=== PATIENT | male | born 1960 | race Hispanic/Latino ===

== ENCOUNTER 2017-12-13 18:45 | Emergency (ER) | payer OTHER ==
--- NOTE | 2017-12-13 19:27 | C.PDOC ---
History Of Present Illness 57-year-old male presents to the ED for evaluation of left posterior upper thigh abscess which has been present for two days. Patient denies any fevers at home as well as any other complaints at this time. Time Seen by Provider: 12/13/17 19:04 Chief Complaint (Nursing): Abnormal Skin Integrity History Per: Patient History/Exam Limitations: no limitations Onset/Duration Of Symptoms: Days (2) Current Symptoms Are (Timing): Still Present Location Of Injury: Left: Thigh (posterior, upper ) Additional History Per: Patient Past Medical History Reviewed: Historical Data, Nursing Documentation, Vital Signs Vital Signs: Last Vital Signs Temp 99 F 12/13/17 20:29 Pulse 100 H 12/13/17 20:29 Resp 20 12/13/17 20:29 BP 130/80 12/13/17 20:29 Pulse Ox 97 12/14/17 00:36 - Medical History PMH: No Chronic Diseases Surgical History: No Surg Hx Family History: States: Unknown Family Hx - Social History Hx Alcohol Use: Yes Hx Substance Use: No - Immunization History Hx Tetanus Toxoid Vaccination: No Hx Influenza Vaccination: No Hx Pneumococcal Vaccination: No Review Of Systems Constitutional: Negative for: Fever, Chills Skin: Positive for: Other (abscess to left posterior upper thigh ) Physical Exam - Physical Exam Appears: Non-toxic, No Acute Distress Skin: Other (3-4cm area of erythema, induration, and fluctuation to left posterior upper thigh ) Head: Atraumatic, Normacephalic Eye(s): bilateral: Normal Inspection Oral Mucosa: Moist Neck: Supple Chest: Symmetrical, No Deformity Cardiovascular: Rhythm Regular, No Murmur Respiratory: Normal Breath Sounds, No Rales, No Rhonchi, No Wheezing Extremity: Normal ROM, Capillary Refill (less than 2 seconds ) Neurological/Psych: Normal Speech, Normal Cognition ED Course And Treatment O2 Sat by Pulse Oximetry: 97 (on RA) Pulse Ox Interpretation: Normal Medical Decision Making Medical Decision Making: abscess i and d pending. Progress: Tylenol PO given. drained bedside by surgical assistant pt feels much better s/p drainage. advise 2 day return for wound check. Disposition - Disposition Referrals: [facility] [Outside] [facility] [Outside] Elena Magaña MD [Staff Provider] - Disposition: HOME/ ROUTINE Disposition Time: 08:00 Condition: STABLE Additional Instructions: return in 2 days for woundcheck. return immediately with any worsening symptoms or concerns. Prescriptions: Sulfamethoxazole/Trimethoprim [Bactrim DS 800 mg-160 mg] 1 tab PO BID #20 tab Instructions: Skin Abscess, Cellulitis (Skin Infection), Adult (DC) Forms: [employer] (Kittitian) - Clinical Impression Clinical Impression: Abscess - Scribe Statement The provider has reviewed the documentation as recorded by the Scribe (Cynthia Magaña) Provider Attestation: All medical record entries made by the Nessaibe were at my direction and personally dictated by me. I have reviewed the chart and agree that the record accurately reflects my personal performance of the history, physical exam, medical decision making, and the department course for this patient. I have also personally directed, reviewed, and agree with the discharge instructions and disposition.
[2017-12-13] MEDS ORDERED: Lidocaine 1% Inj (20ml) INFIL ONE (19:28)
[2017-12-13] MEDS ORDERED: HYDROmorphone 1 mg/ml ISec IVP STA (19:28)
[2017-12-13] MEDS ORDERED: Morphine 4 MG/ML VIAL ONE (19:44)
[2017-12-13] MEDS ORDERED: Lidocaine Hydrochloride 10 ML INJ ONE (19:50)
[2017-12-13] MEDS ORDERED: Tmp-Smz 800 mg-160 mg DS Tab PO STA (20:14)
[2017-12-13] MEDS ORDERED: Tmp-Smz 800 mg-160 mg DS Tab ONE (20:21)
[2017-12-13 20:30] VITALS: BP 130/80; PULSE 100; RESP 20; TEMP 99
[2017-12-14 00:36] VITALS: O2SAT 97
--- NOTE | 2017-12-20 18:33 | PCM.PROC ---
- Incision & Drainage Of Abscess Anesthesia: Lidocaine 1% Used During Procedure: Continuous Pulse Oximetry, Auto Polisher, Oxygen Prep Used: Sterile Water, Betadine Procedure: Incised W/Scalpel Blade#: (11), Drained Pus, Irrigated Cavity W/Saline (Buttocks), Probed To Break Up Loculations, Packed W/Gauze
== END 2017-12-13 20:29 | disposition home or self-care (01) ==
LOC: C.ER 18:45
DX: L02.416 Cutaneous abscess of left lower limb (principal)
CPT/HCPCS: 10060; 96372; 99283; J2270

== ENCOUNTER 2018-03-13 06:35 | Emergency (ER) | payer OTHER ==
[2018-03-13 06:44] VITALS: RESP 18
[2018-03-13] MEDS ORDERED: Naproxen 550 mg Tab PO STA (07:24)
--- NOTE | 2018-03-13 07:31 | C.PDOC ---
History Of Present Illness 57 y/o male presents to the ED complaining of left upper leg pain, originating in the left buttock and radiating down into the thigh for 1 week. Denies any fall or injury. Pain was initially localized to the lower thigh and has migrated upward. Today pain worsened, prompting him to come to the ED. Pain worsens with movement. Otherwise patient denies any numbness, tingling, fever, rash, abdominal pain, leg swelling, chest pain, or SOB. Time Seen by Provider: 03/13/18 07:14 Chief Complaint (Nursing): Lower Extremity Problem/Injury History Per: Patient History/Exam Limitations: no limitations Onset/Duration Of Symptoms: Days (x7) Current Symptoms Are (Timing): Still Present Past Medical History Reviewed: Historical Data, Nursing Documentation, Vital Signs Vital Signs: Last Vital Signs Temp 98.3 F 03/13/18 06:39 Pulse 68 03/13/18 06:39 Resp 18 03/13/18 06:39 BP 156/100 H 03/13/18 06:39 Pulse Ox 95 03/13/18 06:39 Family History: States: Unknown Family Hx - Social History Hx Tobacco Use: No Hx Alcohol Use: Yes Hx Substance Use: No - Immunization History Hx Tetanus Toxoid Vaccination: No Hx Influenza Vaccination: No Hx Pneumococcal Vaccination: No Review Of Systems Constitutional: Negative for: Fever Cardiovascular: Negative for: Chest Pain Respiratory: Negative for: Shortness of Breath Gastrointestinal: Negative for: Abdominal Pain Musculoskeletal: Positive for: Leg Pain (left buttock through left thigh). Negative for: Back Pain Skin: Negative for: Rash, Lesions Neurological: Negative for: Weakness, Numbness Physical Exam - Physical Exam Appears: Non-toxic, In Acute Distress (in mild painful distress) Skin: Normal Color, Warm, Dry Head: Atraumatic, Normacephalic Eye(s): bilateral: Normal Inspection, PERRL, EOMI Oral Mucosa: Moist Neck: Normal ROM Chest: Symmetrical Cardiovascular: Rhythm Regular, No Murmur Respiratory: Normal Breath Sounds, No Rales, No Rhonchi, No Wheezing Gastrointestinal/Abdominal: Soft, No Tenderness, No Distention, Other (Obese abdomen) Extremity: Tenderness (Left gluteal muscle TTP, left posterior thigh mildly TTP), No Calf Tenderness, Capillary Refill (less than 2 sec), No Swelling, Other (No rash) Pulses: Left Dorsalis Pedis: Normal, Right Dorsalis Pedis: Normal Neurological/Psych: Oriented x3, Normal Motor, Normal Sensation, Other (No focal deficits) ED Course And Treatment O2 Sat by Pulse Oximetry: 95 (RA) Pulse Ox Interpretation: Normal Progress Note: Administered 10 mg Flexeril, 40 mg Prednisone, and 550 mg Naproxen PO. Disposition Counseled Patient/Family Regarding: Studies Performed, Diagnosis, Need For Followup, Rx Given - Disposition Referrals: [facility] [Outside] Disposition: HOME/ ROUTINE Disposition Time: 08:50 Condition: STABLE Additional Instructions: FOLLOW UP WITH YOUR DOCTOR IN 1-2 DAYS USE MEDICATIONS DIRECTED RETURN TO ER IF SYMPTOMS WORSEN Prescriptions: Cyclobenzaprine [Flexeril] 10 mg PO BID PRN #15 tab PRN Reason: Muscle Spasm Naproxen [Naprosyn] 1 tab PO BID PRN #25 tab PRN Reason: Pain predniSONE [predniSONE Tab] 40 mg PO DAILY #6 tab Instructions: Radiculopathy (DC) Forms: [email or web address] (Zambian) Print Language: PORTUGUESE - Clinical Impression Clinical Impression: Piriformis syndrome of left side - Scribe Statement The provider has reviewed the documentation as recorded by the Sully Pereira Provider Attestation: All medical record entries made by the Sully were at my direction and personally dictated by me. I have reviewed the chart and agree that the record accurately reflects my personal performance of the history, physical exam, medical decision making, and the department course for this patient. I have also personally directed, reviewed, and agree with the discharge instructions and disposition.
[2018-03-13] MEDS ORDERED: Naproxen 550 mg Tab PO ONE (07:44)
[2018-03-13 09:02] VITALS: BP 156/86; PULSE 67; TEMP 97.9; O2SAT 97
== END 2018-03-13 09:18 | disposition home or self-care (01) ==
LOC: C.ER 06:35
DX: G57.02 Lesion of sciatic nerve, left lower limb (principal)

== ENCOUNTER 2018-03-14 06:43 | Emergency (ER) | payer OTHER ==
[2018-03-14] MEDS ORDERED: Oxycodone/Acetaminophen 5/325 mg Tab PO STA (07:12)
[2018-03-14] MEDS ORDERED: Oxycodone/Acetaminophen 5/325 mg Tab ONE (07:35)
--- NOTE | 2018-03-14 09:03 | C.PDOC ---
History Of Present Illness 57 y/o male,w/ PMhx of piriformis syndrome, presents to the ER complaining of persistent pain to left buttock which has been present for the past 1 week. Patient states that the pain radiates down the left leg. Patient was evaluated for similar complaint yesterday. At the time, he was discharged with prescriptions for Prednisone and Flexeril. He reports that he took the medications without relief at 8 pm last night. He notes that the pain became worse last night. He walks 3 miles to and from work at a brisk pace and he usually carries a heavy wallet in his left rear pocket at work. Denies having falls, trauma,injuries, weakness and numbness. Time Seen by Provider: 03/14/18 07:01 Chief Complaint (Nursing): Back Pain History Per: Patient History/Exam Limitations: no limitations Onset/Duration Of Symptoms: Days Past Medical History Reviewed: Historical Data, Nursing Documentation, Vital Signs Vital Signs: Last Vital Signs Temp 98 F 03/14/18 06:52 Pulse 83 03/14/18 06:52 Resp 24 03/14/18 06:52 BP 144/99 H 03/14/18 06:52 Pulse Ox 98 03/14/18 06:52 - Medical History PMH: No Chronic Diseases Surgical History: No Surg Hx Family History: States: No Known Family Hx - Social History Hx Tobacco Use: No Hx Alcohol Use: Yes Hx Substance Use: No - Immunization History Hx Tetanus Toxoid Vaccination: No Hx Influenza Vaccination: No Hx Pneumococcal Vaccination: No Review Of Systems Except As Marked, All Systems Reviewed And Found Negative. Musculoskeletal: Positive for: Other (left buttock pain) Neurological: Negative for: Weakness, Numbness Physical Exam - Physical Exam Appears: Non-toxic, Other (obese white male, moderate distress) Skin: Normal Color, Warm, Dry Head: Atraumatic, Normacephalic Eye(s): bilateral: Normal Inspection Nose: Normal Oral Mucosa: Moist Neck: Supple Chest: Symmetrical Cardiovascular: Rhythm Regular Respiratory: Normal Breath Sounds, No Rales, No Rhonchi, No Wheezing Extremity: Normal ROM, Tenderness (tenderness to left lateral buttock, consistent with piriformis syndrome), No Swelling Neurological/Psych: Oriented x3, Normal Speech, Normal Motor, Normal Sensation ED Course And Treatment O2 Sat by Pulse Oximetry: 98 (RA) Pulse Ox Interpretation: Normal Medical Decision Making Medical Decision Making: persistent pyriformis syndrome prior Walletitis- now educated to not store wallet in L rear pocket no heat/streching for 1 week ice therapy 1/2 hour per hour, nothing hot Continue Prednisone as Rx yesterday Tramadol for pain PRN Disposition Doctor Will See Patient In The: Office Counseled Patient/Family Regarding: Studies Performed, Diagnosis - Disposition Referrals: [facility] [Outside] [facility] [Outside] [facility] [Outside] Disposition: HOME/ ROUTINE Disposition Time: 09:03 Condition: GOOD Additional Instructions: Pyriformis Syndrome: ice packs to L buttock 1/2 hour per hour (14x/day while awake) nothing hot, no streching/straining. Continue Prednisone, until completed, as Rx yesterday Pepcid 20 mg @ night will prevent stomach irritation from the prednisone Tramadol 50 mg (narcotic pain reliever) 1 tab every 4-6 hours as needed for pain Never place wallet in L rear pocket- "Walletitis" Prescriptions: traMADol [Ultram] 50 mg PO Q6H PRN #20 tab PRN Reason: pain Instructions: Sciatica (DC) Forms: [facility] (Persian) - Clinical Impression Clinical Impression: Piriformis syndrome of left side - Scribe Statement The provider has reviewed the documentation as recorded by the Sully Howard Provider Attestation: All medical record entries made by the Scribe were at my direction and personally dictated by me. I have reviewed the chart and agree that the record accurately reflects my personal performance of the history, physical exam, medical decision making, and the department course for this patient. I have also personally directed, reviewed, and agree with the discharge instructions and disposition.
[2018-03-14 09:07] VITALS: BP 132/79; PULSE 70; RESP 18; TEMP 98.3
[2018-03-14 10:05] VITALS: O2SAT 98
== END 2018-03-14 09:28 | disposition home or self-care (01) ==
LOC: C.ER 06:43
DX: G57.02 Lesion of sciatic nerve, left lower limb (principal)
CPT/HCPCS: 96372; 99284; J1885

== ENCOUNTER 2018-03-14 15:05 | Observation (INO) | payer OTHER ==
[2018-03-14] MEDS ORDERED: Dexamethasone 4 mg/1 ml IVP STA (15:13)
[2018-03-14] MEDS ORDERED: Oxycodone/Acetaminophen 5/325 mg Tab PO STA (15:18)
[2018-03-14] MEDS ORDERED: Vitamins A & D Oint UD Foilpak ONE (15:36)
[2018-03-14] MEDS ORDERED: Oxycodone/Acetaminophen 5/325 mg Tab ONE (15:42)
[2018-03-14 16:05] LABS: BASO % 0.2 % (0.0-2.0); EOS % 0.1 % (0.0-4.0); HEMOGLOBIN 15.1 g/dL (12.0-18.0); LYMPH # 0.8 K/uL (1.0-4.3); MEAN CELL VOLUME 93.1 fL (80.0-94.0); MEAN CORPUSCULAR HGB CONC 34.3 g/dL (33.0-37.0); MEAN PLATELET VOLUME 8.4 fL (7.2-11.7); MONO # 0.2 K/uL (0.0-0.8); MONO % 2.2 % (0.0-10.0); NEUT # 7.8 K/uL (1.8-7.0); NEUT % 88.5 % (50.0-75.0); PLATELET COUNT 232 K/uL (130-400); RBC 4.74 Mil/uL (4.40-5.90); RED CELL DISTRIBUTION WIDTH 13.2 % (11.5-14.5); WHITE BLOOD COUNT 8.8 K/uL (4.8-10.8)
--- NOTE | 2018-03-14 16:21 | C.PDOC ---
History Of Present Illness 57 year old male presents to the ED complaining of left thigh and knee pain and paresthesia. Patient was seen earlier in the ED by me for left buttock and thigh pain that was improved with ice therapy and Percocet. Denies any further buttock pain. Reports worsening paresthesia of left thigh and knee. Denies any trauma or injuries. Time Seen by Provider: 03/14/18 15:12 Chief Complaint (Nursing): Lower Extremity Problem/Injury History Per: Patient History/Exam Limitations: no limitations Onset/Duration Of Symptoms: Hrs Current Symptoms Are (Timing): Still Present Additional History Per: Prior Records Past Medical History Reviewed: Historical Data, Nursing Documentation, Vital Signs - Medical History PMH: No Chronic Diseases Surgical History: No Surg Hx Family History: States: No Known Family Hx - Social History Hx Tobacco Use: No Hx Alcohol Use: Yes Hx Substance Use: No - Immunization History Hx Tetanus Toxoid Vaccination: No Hx Influenza Vaccination: No Hx Pneumococcal Vaccination: No Review Of Systems Except As Marked, All Systems Reviewed And Found Negative. Constitutional: Negative for: Fever, Chills Cardiovascular: Negative for: Chest Pain, Edema Musculoskeletal: Positive for: Other (left knee and thigh paresthesis and pain ) Physical Exam - Physical Exam Appears: Non-toxic, Other (moderate distress) Skin: Warm, Dry, No Rash Head: Normacephalic Eye(s): bilateral: Normal Inspection Nose: Normal Oral Mucosa: Moist Neck: Supple Chest: Symmetrical Cardiovascular: Rhythm Regular Respiratory: Normal Breath Sounds, No Rales, No Rhonchi, No Wheezing Gastrointestinal/Abdominal: Soft, No Tenderness Extremity: No Pedal Edema, No Deformity, No Swelling, Other (paresthesia and tenderness to left knee area that radiates to medial thigh, normal strength 5/5, normal pulses, normal sensation) Extremity: Bilateral: Atraumatic, Normal Color And Temperature, Normal ROM Pulses: Left Dorsalis Pedis: Normal, Right Dorsalis Pedis: Normal Neurological/Psych: Oriented x3, Normal Speech, Normal Motor, Normal Sensation, Normal Reflexes Gait: Steady ED Course And Treatment - Laboratory Results Result Diagrams: 03/14/18 15:55 03/14/18 15:55 Lab Interpretation: Normal (ua neg.) O2 Sat by Pulse Oximetry: 98 (RA) Pulse Ox Interpretation: Normal - CT Scan/US MRI Lumbar spine Other Rad Studies (CT/US): Read By Radiologist, Radiology Report Reviewed CT/US Interpretation: IMPRESSION: No acute fractures. There is a small of disc herniation within the proximal aspect left exit foramen at the L5 3 L4 level that results in compressive effects on the left L3 foraminal nerve root. Multilevel degenerative facet arthropathy as detailed above. Reevaluation Time: 19:13 Reassessment Condition: Improved - Physician Consult Information Outcome Of Conversation: 1900: d/w Dr. Mello, Medicine Apartment House Manager, ok to admit Medical Decision Making Medical Decision Making: Plan - Spinal Canal lumbar MRI - Decadron 10mg IVP - Percocet 1 tab PO - UA - Drug Screen, Urine sciatica L3 nerve root 3rd ED visit in 24 hours for same. consider Neuro/Chronic pain control/injection therapy Disposition Doctor Will See Patient In The: Hospital Counseled Patient/Family Regarding: Studies Performed, Diagnosis - Disposition Disposition: HOSPITALIZED Disposition Time: 19:13 Condition: GOOD Forms: [employer] [facility] (Upper Sorbian) - Clinical Impression Clinical Impression: Sciatica of left side - Scribe Statement The provider has reviewed the documentation as recorded by the Nessaibalexis Jaffe All medical record entries made by the Sully were at my direction and personally dictated by me. I have reviewed the chart and agree that the record accurately reflects my personal performance of the history, physical exam, medical decision making, and the department course for this patient. I have also personally directed, reviewed, and agree with the discharge instructions and disposition.
[2018-03-14 16:29] LABS: ALB/GLOB RATIO 1.4 (1.0-2.1); ALBUMIN 4.4 g/dL (3.5-5.0); ALT/SGPT 47 U/L (21-72); AST/SGOT 31 U/L (17-59); BLOOD UREA NITROGEN 15 mg/dL (9-20); CALCIUM 9.6 mg/dl (8.6-10.4); GFR NON-AFRICAN AMERICAN > 60; LIPASE 46 U/L (23-300)
[2018-03-14 16:35] LABS: MONOCYTE 2 % (0-10); PLATELET ESTIMATE NORMAL (NORMAL); TOTAL CELLS COUNTED 100
[2018-03-14 16:39] LABS: NEUTROPHIL 85 % (50-75)
[2018-03-14 16:40] LABS: LYMPHOCYTE 13 % (20-40)
[2018-03-14 18:40] LABS: URINE BILIRUBIN NEGATIVE (NEGATIVE); URINE BLOOD NEGATIVE (NEGATIVE); URINE CLARITY Clear (Clear); URINE COLOR Yellow (YELLOW); URINE GLUCOSE (UA) NORMAL (Normal); URINE LEUKOCYTE ESTERASE NEG Leu/uL (Negative); URINE PROTEIN NEGATIVE (NEGATIVE); URINE UROBILINOGEN NORMAL mg/dL (0.2-1.0)
--- NOTE | 2018-03-14 18:41 | MRI ---
Date of service: 03/14/2018 PROCEDURE: MR LUMBAR SPINE WITHOUT CONTRAST HISTORY: BACK AND LEFT LEG PAIN WITH NUMBNESS COMPARISON: None available. TECHNIQUE: Multiecho multiplanar sequences were performed through the lumbar spine without the use of intravenous contrast. FINDINGS: No acute compression fractures no retropulsed fragments. Vertebral bodies exhibit normal stature. Vertebral bodies and facets normally aligned. Normal marrow signal. There are no paraspinal soft tissue abnormalities. T12-L1: No disc herniation, spinal canal stenosis or neural foraminal narrowing. L1-2: Mild age related disc desiccation. No disc herniation or significant disc bulge. The facets are slightly hypertrophic. L2-3: There is mild age related disc desiccation. No disc herniation or significant disc bulge. Facet joints are hypertrophic.. Central canal and exit foramina adequate.. L3-4: Mild age related disc desiccation. Disc space height maintained. There is a of proximal left foraminal disc herniation that results in narrowing of the left exit foramen and mild compression of the left-sided L3 foraminal nerve root.. The facet joints are hypertrophic with a small amount of intra facetal fluid L4-5: Mild age related disc desiccation however disc space height maintained. No disc herniation however small amount proximal left foraminal disc bulge present which results in some flattening of the anterior inferior margin of the left L4 foraminal nerve root... Facets are hypertrophic with a small amount of intra facetal fluid L5-S1: There is adequate disc height and hydration. No disc herniation or significant disc bulge. Facet joints are hypertrophic with a small amount of intra facetal fluid. Overall central bony canal and exit foramina are adequate. OTHER FINDINGS: Conus terminates at approximately the upper L1 level. IMPRESSION: No acute fractures. There is a small of disc herniation within the proximal aspect left exit foramen at the L5 3 L4 level that results in compressive effects on the left L3 foraminal nerve root. Multilevel degenerative facet arthropathy as detailed above.
[2018-03-14 19:07] LABS: BARBITURATES, UR NEGATIVE (NEGATIVE); BENZODIAZEPINES, UR NEGATIVE (NEGATIVE); OPIATES, UR NEGATIVE (NEGATIVE); PHENCYCLIDINE, UR NEGATIVE (NEGATIVE)
[2018-03-14] MEDS ORDERED: Oxycodone/Acetaminophen 5/325 mg Tab PO PRN (22:14)
[2018-03-14] MEDS ORDERED: Naproxen 275 mg Tab PO PRN (22:25)
[2018-03-14 23:16] VITALS: RESP 20
[2018-03-15] MEDS ORDERED: Pneumococcal 23-Valent Vaccine IM ONE (10:00)
[2018-03-15] MEDS: Multiple Vitamins Tab PO SCH (10:55)
--- NOTE | 2018-03-15 17:08 | CP.PCM.HP ---
History of Present Illness - History of Present Illness History of Present Illness: ptadmited for severe pain back knee numness unable to stand or walk seen few days befor in ed given treatment then got worse admited Present on Admission - Present on Admission Any Indicators Present on Admission: No Review of Systems - Review of Systems Systems not reviewed;Unavailable: Acuity of Condition - Constitutional Constitutional: As Per HPI - EENT Eyes: As Per HPI Ears: As Per HPI Nose/Mouth/Throat: As Per HPI - Cardiovascular Cardiovascular: As Per HPI - Respiratory Respiratory: As Per HPI - Gastrointestinal Gastrointestinal: As Per HPI - Genitourinary Genitourinary: As Per HPI - Reproductive: Male Reproductive:Male: As Per HPI - Musculoskeletal Musculoskeletal: Back Pain, Numbness, Tingling Additional comments: pain l knee - Integumentary Integumentary: As Per HPI - Neurological Neurological: As Per HPI, Numbness, Tingling - Psychiatric Psychiatric: As Per HPI - Endocrine Endocrine: As Per HPI - Hematologic/Lymphatic Hematologic: As Per HPI Past Patient History - Infectious Disease Hx of Infectious Diseases: None - Past Medical History & Family History Past Medical History?: Yes - Past Social History Smoking Status: Never Smoked - CARDIAC Hx Hypertension: Yes - PULMONARY Hx Respiratory Disorders: No - NEUROLOGICAL Hx Neurological Disorder: No - HEENT Hx HEENT Problems: No - RENAL Hx Chronic Kidney Disease: No - ENDOCRINE/METABOLIC Hx Endocrine Disorders: No - HEMATOLOGICAL/ONCOLOGICAL Hx Blood Disorders: No - INTEGUMENTARY Hx Dermatological Problems: No - MUSCULOSKELETAL/RHEUMATOLOGICAL Hx Falls: No - PSYCHIATRIC Hx Substance Use: No - SURGICAL HISTORY Hx Surgeries: No Other/Comment: later circumcision - ANESTHESIA Hx Anesthesia: Yes Hx Anesthesia Reactions: No Hx Malignant Hyperthermia: No Has any member of the family had a problem w/ anesthesia?: No Meds Allergies/Adverse Reactions: Allergies Allergy/AdvReac Type Severity Reaction Status Date / Time No Known Allergies Allergy Verified 03/14/18 15:13 Physical Exam - Constitutional Appears: Non-toxic, In Acute Distress - Head Exam Head Exam: NORMAL INSPECTION - Eye Exam Eye Exam: Normal appearance Pupil Exam: NORMAL ACCOMODATION - ENT Exam ENT Exam: Normal Exam - Neck Exam Neck exam: Positive for: Full Rom - Respiratory Exam Respiratory Exam: Clear to Auscultation Bilateral - Cardiovascular Exam Cardiovascular Exam: REGULAR RHYTHM - GI/Abdominal Exam GI & Abdominal Exam: Normal Bowel Sounds - Exam Exam: NORMAL INSPECTION - Extremities Exam Extremities exam: Positive for: normal inspection Additional comments: pain lknee numness l thigh and knee - Back Exam Back exam: NORMAL INSPECTION - Neurological Exam Neurological exam: Abnormal Gait, Oriented x3 - Psychiatric Exam Psychiatric exam: Normal Affect - Skin Skin Exam: Normal Color - Additional Findings Additional findings: unable to stand or walk Results - Vital Signs Recent Vital Signs: Last Vital Signs Temp 98.1 F 03/15/18 15:58 Pulse 83 03/15/18 15:58 Resp 20 03/15/18 15:58 BP 143/86 03/15/18 15:58 Pulse Ox 95 03/15/18 15:58 - Labs Result Diagrams: 03/14/18 15:55 03/14/18 15:55 Labs: Laboratory Results - last 24 hr 03/14/18 03/14/18 18:28 18:28 Urine Color Yellow Urine Clarity Clear Urine pH 6.0 Ur Specific [place] 1.012 Urine Protein Negative Urine Glucose (UA) Normal Urine Ketones Negative Urine Blood Negative Urine Nitrate Negative Urine Bilirubin Negative Urine Urobilinogen Normal Ur Leukocyte Esterase Neg Urine WBC (Auto) 1 Urine RBC (Auto) 1 Urine Opiates Screen Negative Urine Methadone Screen Negative Ur Barbiturates Screen Negative Ur Phencyclidine Scrn Negative Ur Amphetamines Screen Negative U Benzodiazepines Scrn Negative U Oth Cocaine Metabols Negative U Cannabinoids Screen Negative Assessment & Plan - Assessment and Plan (Free Text) Assessment: ac pain back and knee numness l thigh knee inability to stand or walk Plan: admit and consults - Date & Time Date: 03/15/18 Time: 17:13
[2018-03-16] MEDS ORDERED: Dexamethasone 4 mg/1 ml IV STA (06:54)
--- NOTE | 2018-03-16 06:54 | CP.PCM.CON ---
History of Present Illness - History of Present Illness History of Present Illness: Neurology Consultation Note: Mr. Osorio is a 57-year-old man with a past medical history of hypertension, who usually walks about 3 miles a day, but developed left leg burning pain to the anterior thigh about 2 weeks ago while ambulating. This pain was progressive and radiated down to the knee with subsequent numbness and weakness of the left lower extremity. The pain has become severe, and is associated with weakness where he feels the leg "gives out" on him. He presented to the ED on 3 several occasions and was given pain killers and steroids, which helped, but the pain came back resulting in the current admission. Review of Systems - Constitutional Constitutional: As Per HPI - EENT Eyes: absent: As Per HPI, Blind Spots, Blurred Vision, Change in Vision, Decreased Night Vision, Diplopia, Discharge, Dry Eye, Exophthalmos, Floaters, Irritation, Itchy Eyes, Loss of Peripheral Vision, Pain, Photophobia, Requires Corrective Lenses, Sees Flashes, Spots in Vision, Tunnel Vision, Other Visual Disturbances, Loss of Vision, Other Ears: absent: As Per HPI, Decreased Hearing, Ear Discharge, Ear Pain, Tinnitus, Abnormal Hearing, Disequilibrium, Dizziness, Other Nose/Mouth/Throat: absent: As Per HPI, Epistaxis, Nasal Congestion, Nasal Discharge, Nasal Obstruction, Nasal Trauma, Nose Pain, Post Nasal Drip, Sinus Pain, Sinus Pressure, Bleeding Gums, Change in Voice, Dental Pain, Dry Mouth, Dysphagia, Halitosis, Hoarsness, Lip Swelling, Mouth Lesions, Mouth Pain, Odynophagia, Sore Throat, Throat Swelling, Tongue Swelling, Facial Pain, Neck Pain, Neck Mass, Other - Cardiovascular Cardiovascular: absent: As Per HPI, Acrocyanosis, Chest Pain, Chest Pain at Rest, Chest Pain with Activity, Claudication, Diaphoresis, Dyspnea, Dyspnea on Exertion, Edema, Irregular Heart Rhythm, Pain Radiating to Arm/Neck/Jaw, Leg Edema, Leg Ulcers, Lightheadedness, Orthopnea, Palpitations, Paroxysmal Nocturnal Dyspnea, Pedal Edema, Radiating Pain, Rapid Heart Rate, Slow Heart Rate, Syncope, Other - Respiratory Respiratory: absent: As Per HPI, Cough, Dyspnea, Hemoptysis, Dyspnea on Exertion, Wheezing, Snoring, Stridor, Pain on Inspiration, Chest Congestion, Excessive Mucous Production, Change in Mucous Color, Pain with Coughing, Other - Gastrointestinal Gastrointestinal: absent: As Per HPI, Abdominal Pain, Belching, Bloating, Change in Bowel Habits, Change in Stool Character, Coffee Ground Emesis, Constipation, Cramping, Diarrhea, Dyspepsia, Dysphagia, Early Satiety, Excessive Flatus, Fecal Incontinence, Heartburn, Hematemesis, Hematochezia, Loose Stools, Melena, Nausea, Odynophagia, Temesmus, Vomiting, Other - Musculoskeletal Musculoskeletal: absent: As Per HPI, Abnormal Gait, Arthralgias, Atrophy, Back P ain, Deformity, Joint Swelling, Limited Range of Motion, Loss of Height, Muscle Cramps, Muscle Weakness, Myalgias, Neck Pain, Numbness, Radiating Pain into Limb, Stiffness, Tingling, Other - Integumentary Integumentary: absent: As Per HPI, Acne, Alopecia, Bleeding Lesions, Change in Hair, Change in Nails, Change in Pigmentation, Changing Lesions, Dry Skin, Er ythema, Furuncle, Hirsutism, Lesions, New Lesions, Non-Healing Lesions, Photosensitivity, Pruritus, Rash, Skin Pain, Skin Ulcer, Sores, Striae, Swelling, Unusual Bruising, Wounds, Jaundice, Other - Neurological Neurological: As Per HPI - Psychiatric Psychiatric: absent: As Per HPI, Abnormal Sleep Pattern, Anhedonia, Anxiety, Auditory Hallucinations, Behavioral Changes, Change in Appetite, Change in Libido, Confusion, Depression, Difficulty Concentrating, Hallucinations, Homicidal Ideation, Hopelessness, Irritability, Memory Loss, Mood Swings, Panic Attacks, Paranoia, Suicidal Ideation, Visual Hallucinations, Tactile Hallucinations, Other - Endocrine Endocrine: absent: As Per HPI, Change in Body Appearance, Change in Libido, Cold Intolorance, Deepening of Voice, Excessive Sweating, Fatigue, Flushing, Heat Intolorance, Increase in Ring/Shoe/Hat Size, Palpitations, Polydipsia, Polyphagia, Polyuria, Other - Hematologic/Lymphatic Hematologic: absent: As Per HPI, Easy Bleeding, Easy Bruising, Lymphadenopathy, Other Past Patient History - Infectious Disease Hx of Infectious Diseases: None - Past Medical History & Family History Past Medical History?: Yes - Past Social History Smoking Status: Never Smoked - CARDIAC Hx Hypertension: Yes - PULMONARY Hx Respiratory Disorders: No - NEUROLOGICAL Hx Neurological Disorder: No - HEENT Hx HEENT Problems: No - RENAL Hx Chronic Kidney Disease: No - ENDOCRINE/METABOLIC Hx Endocrine Disorders: No - HEMATOLOGICAL/ONCOLOGICAL Hx Blood Disorders: No - INTEGUMENTARY Hx Dermatological Problems: No - MUSCULOSKELETAL/RHEUMATOLOGICAL Hx Falls: No - PSYCHIATRIC Hx Substance Use: No - SURGICAL HISTORY Hx Surgeries: No Other/Comment: later circumcision - ANESTHESIA Hx Anesthesia: Yes Hx Anesthesia Reactions: No Hx Malignant Hyperthermia: No Has any member of the family had a problem w/ anesthesia?: No Meds Allergies/Adverse Reactions: Allergies Allergy/AdvReac Type Severity Reaction Status Date / Time No Known Allergies Allergy Verified 03/14/18 15:13 - Medications Medications: Current Medications Amlodipine Besylate (Norvasc) 10 mg PO DAILY [facility] Last Admin: 03/15/18 10:55 Dose: 10 mg Cyclobenzaprine HCl (Flexeril) 10 mg PO BID PRN PRN Reason: Pain, moderate (4-7) Heparin Sodium (Porcine) (Heparin) 5,000 units SC Q12 [facility] Last Admin: 03/15/18 21:45 Dose: 5,000 units Multivitamins (Hexavitamin) 1 tab PO DAILY [facility] [place] Last Admin: 03/15/18 10:55 Dose: 1 tab Naproxen (Anaprox) 275 mg PO BID PRN PRN Reason: Pain, moderate (4-7) Oxycodone/Acetaminophen (Percocet 5/325 Mg Tab) 1 tab PO Q6H PRN PRN Reason: Pain, moderate (4-7) Stop: 03/17/18 22:15 Last Admin: 03/15/18 21:44 Dose: 1 tab Rosuvastatin Calcium (Crestor) 10 mg PO [facility] Last Admin: 03/15/18 21:44 Dose: 10 mg Physical Exam - Constitutional Appears: Well - Head Exam Head Exam: ATRAUMATIC, NORMAL INSPECTION, NORMOCEPHALIC - Eye Exam Eye Exam: EOMI, Normal appearance, PERRL Pupil Exam: NORMAL ACCOMODATION, PERRL - ENT Exam ENT Exam: Mucous Membranes Moist, Normal Exam - Neck Exam Neck exam: Positive for: Normal Inspection - Respiratory Exam Respiratory Exam: Clear to Auscultation Bilateral, NORMAL BREATHING PATTERN - Cardiovascular Exam Cardiovascular Exam: REGULAR RHYTHM, +S1, +S2 - GI/Abdominal Exam GI & Abdominal Exam: Normal Bowel Sounds, Soft. absent: Tenderness - Rectal Exam Rectal Exam: Deferred - Extremities Exam Extremities exam: Positive for: normal inspection - Back Exam Back exam: NORMAL INSPECTION - Neurological Exam Neurological exam: Alert, CN II-XII Intact, Normal Gait, Oriented x3 Additional comments: Reflexes are diminished in the patellar region on the left side. Distal strength is intact, proximally, the patient has pain from movement - Psychiatric Exam Psychiatric exam: Normal Affect, Normal Mood - Skin Skin Exam: Dry, Intact, Normal Color, Warm Results - Vital Signs Recent Vital Signs: Last Vital Signs Temp 97.8 F 03/16/18 00:00 Pulse 68 03/16/18 00:00 Resp 20 03/16/18 00:00 BP 128/80 03/16/18 00:00 Pulse Ox 98 03/16/18 00:00 - Labs Result Diagrams: 03/14/18 15:55 03/14/18 15:55 Assessment & Plan (1) Sciatica of left side Assessment and Plan: The symptoms are consistent with disc herniation and compression of L3, which is evident on the MRI of the lumbar spine. I recommend physical therapy, neurontin 300 mg TID, decadron 10 mg IV once, and neurosurgical evaluation. This unlikely to require surgery, but the fact that he states he is unable to ambulate could be a concern. A thoracic MRI is also warranted for further evaluation. Thank you for this consultation. Status: Acute
--- NOTE | 2018-03-16 10:07 | RAD ---
PROCEDURE: Left Knee Radiographs. HISTORY: pain COMPARISON: No prior. FINDINGS: BONES: No acute displaced fracture. JOINTS: No dislocation. JOINT EFFUSION: No significant joint effusion. OTHER FINDINGS: None. IMPRESSION: No acute displaced fracture, dislocation, or significant joint effusion identified. If symptoms persist, or if there is continued clinical concern, x-ray follow-up in 7-10 days should be considered.
--- NOTE | 2018-03-16 10:31 | CP.PCM.PN ---
Subjective - Date & Time of Evaluation Date of Evaluation: 03/16/18 Time of Evaluation: 10:29 - Subjective Subjective: pt seen in dialysis now has light headed bp 80/56 Objective - Vital Signs/Intake and Output Vital Signs (last 24 hours): Temp Pulse Resp BP Pulse Ox 98.3 F 62 20 128/79 96 03/16/18 07:39 03/16/18 07:39 03/16/18 07:39 03/16/18 07:39 03/16/18 07:39 Intake and Output: 03/16/18 03/16/18 06:59 18:59 Intake Total 810 Balance 810 - Medications Medications: Current Medications Amlodipine Besylate (Norvasc) 10 mg PO DAILY [facility] Last Admin: 03/15/18 10:55 Dose: 10 mg Cyclobenzaprine HCl (Flexeril) 10 mg PO BID PRN PRN Reason: Pain, moderate (4-7) Gabapentin (Neurontin) 300 mg PO TID [facility] Heparin Sodium (Porcine) (Heparin) 5,000 units SC Q12 [facility] Last Admin: 03/15/18 21:45 Dose: 5,000 units Multivitamins (Hexavitamin) 1 tab PO DAILY [facility] Last Admin: 03/15/18 10:55 Dose: 1 tab Naproxen (Anaprox) 275 mg PO BID PRN PRN Reason: Pain, moderate (4-7) Oxycodone/Acetaminophen (Percocet 5/325 Mg Tab) 1 tab PO Q6H PRN PRN Reason: Pain, moderate (4-7) Stop: 03/17/18 22:15 Last Admin: 03/15/18 21:44 Dose: 1 tab Rosuvastatin Calcium (Crestor) 10 mg PO [facility] Last Admin: 03/15/18 21:44 Dose: 10 mg - Labs Labs: 03/14/18 15:55 03/14/18 15:55 - Constitutional Appears: Non-toxic - Head Exam Head Exam: NORMAL INSPECTION - Eye Exam Eye Exam: Normal appearance Pupil Exam: NORMAL ACCOMODATION - ENT Exam ENT Exam: Mucous Membranes Moist - Neck Exam Neck Exam: Full ROM - Respiratory Exam Respiratory Exam: NORMAL BREATHING PATTERN - Cardiovascular Exam Cardiovascular Exam: REGULAR RHYTHM - GI/Abdominal Exam GI & Abdominal Exam: Normal Bowel Sounds - Rectal Exam Rectal Exam: NORMAL INSPECTION - Exam Exam: NORMAL INSPECTION - Extremities Exam Extremities Exam: Normal Inspection - Back Exam Back Exam: NORMAL INSPECTION - Neurological Exam Neurological Exam: Awake, Oriented x3 - Skin Skin Exam: Normal Color Assessment and Plan - Assessment and Plan (Free Text) Assessment: light headed increase with dialysis esrf Plan: will discuss with nephrology
[2018-03-16] MEDS: Multiple Vitamins Tab PO SCH (10:46)
--- NOTE | 2018-03-16 10:47 | CP.PCM.PN ---
Subjective - Date & Time of Evaluation Date of Evaluation: 03/16/18 Time of Evaluation: 10:44 - Subjective Subjective: pt seen by neurology recomend pt and neurosurgery consult Objective - Vital Signs/Intake and Output Vital Signs (last 24 hours): Temp Pulse Resp BP Pulse Ox 98.3 F 62 20 128/79 96 03/16/18 07:39 03/16/18 07:39 03/16/18 07:39 03/16/18 07:39 03/16/18 07:39 Intake and Output: 03/16/18 03/16/18 06:59 18:59 Intake Total 810 Balance 810 - Medications Medications: Current Medications Amlodipine Besylate (Norvasc) 10 mg PO DAILY [facility] Last Admin: 03/15/18 10:55 Dose: 10 mg Cyclobenzaprine HCl (Flexeril) 10 mg PO BID PRN PRN Reason: Pain, moderate (4-7) Gabapentin (Neurontin) 300 mg PO TID [facility] Heparin Sodium (Porcine) (Heparin) 5,000 units SC Q12 [facility] Last Admin: 03/15/18 21:45 Dose: 5,000 units Multivitamins (Hexavitamin) 1 tab PO DAILY [facility] Last Admin: 03/15/18 10:55 Dose: 1 tab Naproxen (Anaprox) 275 mg PO BID PRN PRN Reason: Pain, moderate (4-7) Oxycodone/Acetaminophen (Percocet 5/325 Mg Tab) 1 tab PO Q6H PRN PRN Reason: Pain, moderate (4-7) Stop: 03/17/18 22:15 Last Admin: 03/15/18 21:44 Dose: 1 tab Rosuvastatin Calcium (Crestor) 10 mg PO HS [facility] Last Admin: 03/15/18 21:44 Dose: 10 mg - Labs Labs: 03/14/18 15:55 03/14/18 15:55 - Constitutional Appears: Non-toxic - Head Exam Head Exam: NORMAL INSPECTION - Eye Exam Eye Exam: Normal appearance Pupil Exam: NORMAL ACCOMODATION - ENT Exam ENT Exam: Mucous Membranes Dry, Mucous Membranes Moist - Neck Exam Neck Exam: Full ROM - Respiratory Exam Respiratory Exam: Clear to Ausculation Bilateral - Cardiovascular Exam Cardiovascular Exam: REGULAR RHYTHM - GI/Abdominal Exam GI & Abdominal Exam: Normal Bowel Sounds - Rectal Exam Rectal Exam: NORMAL INSPECTION - Exam Exam: NORMAL INSPECTION - Extremities Exam Extremities Exam: Normal Inspection - Back Exam Back Exam: CVA tenderness (L) - Neurological Exam Neurological Exam: Alert, Oriented x3 Assessment and Plan - Assessment and Plan (Free Text) Assessment: back pain disc herniatuion radiculopathy will d/c today cont pt and neurosurgery consult as out pt Plan: dc
[2018-03-16 16:41] VITALS: BP 142/85; PULSE 77; TEMP 98; O2SAT 95
--- NOTE | 2018-03-16 17:06 | CP.PCM.PN ---
Subjective - Date & Time of Evaluation Date of Evaluation: 03/16/18 Time of Evaluation: 10:00 - Subjective Subjective: Alert and orientedx3, has pain on the left leg with walking. Objective - Vital Signs/Intake and Output Vital Signs (last 24 hours): Temp Pulse Resp BP Pulse Ox 98.0 F 77 20 142/85 95 03/16/18 16:00 03/16/18 16:00 03/16/18 16:00 03/16/18 16:00 03/16/18 16:00 Intake and Output: 03/16/18 03/16/18 06:59 18:59 Intake Total 810 300 Balance 810 300 - Labs Labs: 03/14/18 15:55 03/14/18 15:55 Assessment and Plan - Assessment and Plan (Free Text) Assessment: 57 year old male admitted with sciatica, left leg pain and numbness, seen and examined. Alert and orientedx3, NAD. Seen by the ,neurologyst advised to follow up as outpatient. Discharged home as per DR Mello. Advised to follow up with PMD in 1 week. Provided with crutches as per physical therapy.
== END 2018-03-16 16:44 | disposition home or self-care (01) ==
LOC: C.ER 15:05 → INTOOBSV 19:17 → C.6T 19:17 → C.9E 19:34 → C.3T 19:35
PROVIDERS: ADMIT Internal Medicine; ATTEND Internal Medicine
DX: M54.32 Sciatica, left side (principal); M51.16 Intervertebral disc disorders with radiculopathy, lumbar region; I12.0 Hypertensive chronic kidney disease with stage 5 chronic kidney disease or end stage renal disease; N18.6 End stage renal disease
CPT/HCPCS: 72148; 73562; 80053; 80324; 80345; 80346; 80349; 80353; 80358; 80361; 81001; 83690; 83992; 85025; 90471; 90732; 96372; 96374; 96376; 97116; 97161; 99285; G0378; G8978; G8979; J1100; J1644